=== PATIENT | male | born 1965 | race Caucasian/White ===

== ENCOUNTER 2017-02-15 09:52 | Emergency (ER) | payer BC ==
[2017-02-15] MEDS ORDERED: Sodium Chloride 0.9% 1,000 ML IV ONE (10:04)
--- NOTE | 2017-02-15 10:08 | EDM.PDOC ---
ED HPI GENERAL MEDICAL PROBLEM - General Chief Complaint: Abdominal Pain Stated Complaint: LOWER ABD PAIN Time Seen by Provider: 02/15/17 10:07 Source of Information: Reports: Patient - History of Present Illness INITIAL COMMENTS - FREE TEXT/NARRATIVE: HISTORY AND PHYSICAL: History of present illness: [Patient presents with acute onset 8 out of 10 right lower pain radiating to the testicles, he has a history of renal stones passing kidney stones in the past no fever nausea vomiting chills sweats Review of systems: As per history of present illness and below otherwise all systems reviewed and negative. Past medical history: As per history of present illness and as reviewed below otherwise noncontributory. Surgical history: As per history of present illness and as reviewed below otherwise noncontributory. Social history: No reported history of drug or alcohol abuse. Family history: As per history of present illness and as reviewed below otherwise noncontributory. Physical exam: HEENT: Atraumatic, normocephalic, pupils reactive, negative for conjunctival pallor or scleral icterus, mucous membranes moist, throat clear, neck supple, nontender, trachea midline. Lungs: Clear to auscultation, breath sounds equal bilaterally, chest nontender. Heart: S1S2, regular, negative for clicks, rubs, or JVD. Abdomen: Soft, nondistended, nontender. Negative for masses or hepatosplenomegaly. Negative for costovertebral tenderness. Pelvis: Stable nontender. Genitourinary: Deferred. Rectal: Deferred. Extremities: Atraumatic, negative for cords or calf pain. Neurovascular unremarkable. Neuro: Awake, alert, oriented. Cranial nerves II through XII unremarkable. Cerebellum unremarkable. Motor and sensory unremarkable throughout. Exam nonfocal. Diagnostics: [Lab as below EKG CT abdomen pelvis with and without contrast ] Therapeutics: [Morphine 2 mg IV 3 Toradol 30 mg IV 1 L normal saline bolus Zofran 8 mg IV Flomax 0.4 mg by mouth Solu-Medrol 125 mg IV None Bactrim Zofran Filter urine ] Impression: 3 mm stone right UVJ Definitive disposition and diagnosis as appropriate pending reevaluation and review of above. Right Lower Abdominal Pain Score (Numeric/FACES): 7 - Related Data Allergies Allergy/AdvReac Type Severity Reaction Status Date / Time avocado Allergy Airway Verified 02/15/17 10:09 Tightness Home Meds: Home Meds . [No Known Home Meds] 02/15/17 [History] ED ROS GENERAL - Review of Systems Review Of Systems: ROS reveals no pertinent complaints other than HPI. ED EXAM, GENERAL - Physical Exam Exam: See Below Course - Vital Signs Last Recorded V/S: Last Vital Signs Temp 36.1 C 02/15/17 12:03 Pulse 77 02/15/17 12:03 Resp 18 02/15/17 12:03 BP 149/89 H 02/15/17 12:03 Pulse Ox 97 02/15/17 12:03 - Orders/Labs/Meds Orders: Active Orders 24 hr Category Date Time Status EKG Documentation Completion [RC] STAT Care 02/15/17 10:08 Active CULTURE URINE [RM] Stat Lab 02/15/17 10:25 Received Labs: Laboratory Tests 02/15/17 02/15/17 02/15/17 Range/Units 10:10 10:10 10:25 WBC 8.03 (4.0-11.0) K/uL RBC 5.03 (4.50-5.90) M/uL Hgb 15.4 (13.0-17.0) g/dL Hct 43.6 (38.0-50.0) % MCV 86.7 (80.0-98.0) fL MCH 30.6 (27.0-32.0) pg MCHC 35.3 (31.0-37.0) g/dL RDW Std Deviation 39.3 (28.0-62.0) fl RDW Coeff of Clarita 12 (11.0-15.0) % Plt Count 292 (150-400) K/uL MPV 10.40 (7.40-12.00) fL Neut % (Auto) 59.6 (48.0-80.0) % Lymph % (Auto) 25.8 (16.0-40.0) % [place] % (Auto) 7.7 (0.0-15.0) % Eos % (Auto) 5.9 (0.0-7.0) % Baso % (Auto) 1.0 (0.0-1.5) % Neut # (Auto) 4.8 (1.4-5.7) K/uL Lymph # (Auto) 2.1 (0.6-2.4) K/uL [place] # (Auto) 0.6 (0.0-0.8) K/uL Eos # (Auto) 0.5 (0.0-0.7) K/uL Baso # (Auto) 0.1 (0.0-0.1) K/uL Nucleated RBC % 0.0 /100WBC Nucleated RBCs # 0 K/uL Sodium 141 (136-146) mmol/L Potassium 4.1 (3.5-5.1) mmol/L Chloride 107 (98-110) mmol/L Carbon Dioxide 24 (21-31) mmol/L BUN 9 (6.0-23.0) mg/dL Creatinine 1.0 (0.6-1.5) mg/dL Est Cr Clr Drug Dosing 98.77 mL/min Estimated GFR (MDRD) > 60.0 ml/min Glucose 126 H (60-110) mg/dL Calcium 9.4 (8.8-10.8) mg/dL Total Bilirubin 0.5 (0.1-1.5) mg/dL AST 27 (5-40) IU/L ALT 33 (8-54) IU/L Alkaline Phosphatase 47 (40-150) Troponin I < 0.10 (0.0-0.29) NG/ML Total Protein 7.1 (6.0-8.0) g/dL Albumin 4.3 (3.5-5.0) g/dL Globulin 2.8 (2.0-3.5) g/dL Albumin/Globulin Ratio 1.5 (1.3-2.8) Amylase 35 (10-90) U/L Lipase 13 (7-80) U/L Urine Color YELLOW Urine Appearance SLT CLOUDY Urine pH 5.5 (5.0-8.0) Ur Specific [place] >= 1.030 (1.001-1.035) Urine Protein NEGATIVE (NEGATIVE) mg/dL Urine Glucose (UA) NEGATIVE (NEGATIVE) mg/dL Urine Ketones NEGATIVE (NEGATIVE) mg/dL Urine Occult Blood MODERATE (NEGATIVE) Urine Nitrite NEGATIVE (NEGATIVE) Urine Bilirubin NEGATIVE (NEGATIVE) Urine Urobilinogen 0.2 (<2.0) EU/dL Ur Leukocyte Esterase NEGATIVE (NEGATIVE) Urine RBC 1-2 (0-2/HPF) Urine WBC 2-4 (0-5/HPF) Ur Epithelial Cells RARE (NONE-FEW) Amorphous Sediment HEAVY (NEGATIVE) Urine Bacteria 2+ H (NEGATIVE) Urine Mucus MODERATE (NONE-MOD) Meds: Medications Discontinued Medications Generic Name Dose Route Start Last Admin Trade Name [place] PRN Reason Stop Dose Admin Sodium Chloride 1,000 mls @ 999 mls/hr 02/15/17 10:04 02/15/17 10:21 Normal Saline IV 02/15/17 11:04 999 mls/hr STAT ONE Administration Iopamidol 100 ml 02/15/17 11:26 02/15/17 11:26 Isovue Multipack-370 (76%) IVPUSH 02/15/17 11:27 100 ml ONETIME STA Administration Ketorolac Tromethamine 30 mg 02/15/17 10:44 02/15/17 10:49 Toradol IVPUSH 02/15/17 10:45 30 mg ONETIME ONE Administration Methylprednisolone Sodium Succinate 125 mg 02/15/17 12:16 02/15/17 12:25 Solu-Medrol IVPUSH 02/15/17 12:17 125 mg ONETIME ONE Administration Morphine Sulfate 2 mg 02/15/17 10:11 02/15/17 10:20 Morphine IV 02/15/17 10:12 2 mg ONETIME ONE Administration Morphine Sulfate 2 mg 02/15/17 10:44 02/15/17 11:06 Morphine IV 02/15/17 10:45 2 mg ONETIME ONE Administration Ondansetron HCl 8 mg 02/15/17 10:11 02/15/17 10:20 Zofran IVPUSH 02/15/17 10:12 8 mg ONETIME ONE Administration Tamsulosin HCl 0.4 mg 02/15/17 12:16 02/15/17 12:25 Flomax PO 02/15/17 12:17 0.4 mg ONETIME ONE Administration Departure - Departure Time of Disposition: 13:01 Disposition: Home, Self-Care 01 Condition: Good Clinical Impression: Ureteral stone with hydronephrosis - Discharge Information Referrals: PCP,None [Primary Care Provider] - Forms: ED Department Discharge Additional Instructions: Medication as prescribed Return if symptoms persist or worsen or if he has intolerable pain or vomiting return to ER Otherwise, continue to filter urine return stone to primary care or urology for pathology testing Follow-up with primary care 2 weeks Follow-up with urology, call numbers below for primary scheduling and appropriate follow-up [facility] - Primary Care [address] [place] [id number] [facility] - Urology [address] [place] [id number] The following information is given to patients seen in the emergency department who are being discharged to home. This information is to outline your options for follow-up care. We provide all patients seen in our emergency department with a follow-up referral. The need for follow-up, as well as the timing and circumstances, are variable depending upon the specifics of your emergency department visit. If you don't have a primary care physician on staff, we will provide you with a referral. We always advise you to contact your personal physician following an emergency department visit to inform them of the circumstance of the visit and for follow-up with them and/or the need for any referrals to a consulting specialist. The emergency department will also refer you to a specialist when appropriate. This referral assures that you have the opportunity for follow-up care with a specialist. All of these measure are taken in an effort to provide you with optimal care, which includes your follow-up. Under all circumstances we always encourage you to contact your private physician who remains a resource for coordinating your care. When calling for follow-up care, please make the office aware that this follow-up is from your recent emergency room visit. If for any reason you are refused follow-up, please contact the [facility] emergency department at and asked to speak to the emergency department charge nurse. - My Orders Last 24 Hours: My Active Orders 02/15/17 10:08 EKG Documentation Completion [RC] STAT 02/15/17 10:25 CULTURE URINE [RM] Stat - Assessment/Plan Last 24 Hours: My Active Orders 02/15/17 10:08 EKG Documentation Completion [RC] STAT 02/15/17 10:25 CULTURE URINE [RM] Stat
[2017-02-15] MEDS ORDERED: Morphine 10 MG/ML Syringe IV ONE ×2 (10:11→10:44)
[2017-02-15] MEDS ORDERED: Ondansetron 4 MG/2 ML SDV IVPUSH ONE (10:11)
[2017-02-15 10:40] LABS: CHLORIDE,CL 107 mmol/L (98-110); SODIUM,NA 141 mmol/L (136-146)
[2017-02-15] MEDS ORDERED: Ketorolac 30 MG/ML SDV IVPUSH ONE (10:44)
[2017-02-15] MEDS ORDERED: Iopamidol 755 MG/ML 500 ML Multipack Bottle IVPUSH STA (11:26)
--- NOTE | 2017-02-15 12:09 | CT ---
CT of the abdomen and pelvis with and without contrast. HISTORY: Pain TECHNIQUE: Axial CT images were obtained of the abdomen and pelvis without and following the administ ration of 100 mL of Isovue in the right antecubital fossa. Coronal and sagittal reconstructions obtai lina. FINDINGS: The lung bases are clear, no pleural effusion. There is a tiny triangular-shaped 3 mm pleural-based n odule, likely focal atelectasis. There is moderate fatty infiltration of the liver. The spleen, and pancreas appear unremarkable for noncontrast examination. There is a small 1.3 cm left adrenal myelolipoma. The gallbladder appears no rmal. There is no bulky retroperitoneal lymphadenopathy. No abdominal ascites. There is a 3 mm stone at the right ureterovesicular junction with mild proximal hydronephrosis and de layed nephrogram. There is mild right renal stranding also noted. No obstructive uropathy noted withi n the left kidney. The large and small bowel are normal in caliber without evidence of obstruction. The appendix appears normal. There is no bulky pelvic lymphadenopathy. No free fluid. No free air. The urinary bladder ap pears normal. Mild degenerative changes noted within the hips. IMPRESSION: 1. There is a 3 mm obstructing stone at the right ureterovesicular junction with mild proximal hydron ephrosis.
[2017-02-15] MEDS ORDERED: Tamsulosin 0.4 MG Cap.ER PO ONE (12:16)
[2017-02-15] MEDS ORDERED: methylPREDNISolone Sodium Succinate 125 MG/2 ML SDV IVPUSH ONE (12:16)
== END 2017-02-15 13:09 | disposition home or self-care (01) ==
LOC: MW.ED 09:52
DX: N13.2 Hydronephrosis with renal and ureteral calculous obstruction (principal); Z91.018 Allergy to other foods
CPT/HCPCS: 36415; 74178; 80053; 81001; 82150; 83690; 84484; 85025; 87086; 96361; 96374; 96375; 96376; 99284; A9270; J1885; J2270; J2405; J2930; J7040; Q9967; 99283

== ENCOUNTER 2017-02-24 13:06 | Inpatient (IN) | payer BC ==
[2017-02-24] MEDS ORDERED: Tamsulosin 0.4 MG Cap.ER PO ONE (13:45)
--- NOTE | 2017-02-24 13:45 | EDM.PDOC ---
ED HPI GENERAL MEDICAL PROBLEM - General Chief Complaint: Genitourinary Problem Stated Complaint: POSSIBLE KIDNEY STONE Time Seen by Provider: 02/24/17 13:15 Source of Information: Reports: Patient History Limitations: Reports: No Limitations - History of Present Illness INITIAL COMMENTS - FREE TEXT/NARRATIVE: History of present illness: [81-year-old male comes in complaining of kidney stone pain. Patient was seen on the with diagnosed kidney stones and subsequent treatment patient has captured a stone that he is brought in as well as feeling like he has developed more and that they are moving and he is complaining of significant amounts of pain.] Review of systems: As per history of present illness and below otherwise all systems reviewed and negative. Past medical history: As per history of present illness and as reviewed below otherwise noncontributory. Surgical history: As per history of present illness and as reviewed below otherwise noncontributory. Social history: No reported history of drug or alcohol abuse. Family history: As per history of present illness and as reviewed below otherwise noncontributory. Physical exam: HEENT: Atraumatic, normocephalic, pupils reactive, negative for conjunctival pallor or scleral icterus, mucous membranes moist, throat clear, neck supple, nontender, trachea midline. Lungs: Clear to auscultation, breath sounds equal bilaterally, chest nontender. Heart: S1S2, regular, negative for clicks, rubs, or JVD. Abdomen: Soft, nondistended, nontender. Negative for masses or hepatosplenomegaly. Negative for costovertebral tenderness. Pelvis: Stable nontender. Genitourinary: Deferred. Rectal: Deferred. Extremities: Atraumatic, negative for cords or calf pain. Neurovascular unremarkable. Neuro: Awake, alert, oriented. Cranial nerves II through XII unremarkable. Cerebellum unremarkable. Motor and sensory unremarkable throughout. Exam nonfocal. Patient with generalized pain indicates he feels significantly better but secondary to leukocytosis discussed with hospitalist and will admit Diagnostics: [CT of abdomen and pelvis without contrast, UA] Therapeutics: [3 L normal saline -IV fluid, Flomax, Toradol] Impression: [#1 Instructing kidney stone #2 leukocytosis ] Plan: [Mid inpatient] Definitive disposition and diagnosis as appropriate pending reevaluation and review of above. Right Lower Abdomen Pain Score (Numeric/FACES): 6 - Related Data Allergies Allergy/AdvReac Type Severity Reaction Status Date / Time avocado Allergy Airway Verified 02/24/17 13:24 Tightness Home Meds: Home Meds HYDROcodone Bitartrate [Zohydro ER] 30 mg PO BID 02/24/17 [History] Ondansetron HCl [Zofran] 8 mg PO DAILY 02/24/17 [History] Sulfamethoxazole/Trimethoprim [Septra] 800 mg PO DAILY 02/24/17 [History] Past Medical History - Past Health History Medical/Surgical History: Denies Medical/Surgical History HEENT History: Reports: None Cardiovascular History: Reports: None Respiratory History: Reports: None Gastrointestinal History: Reports: None Genitourinary History: Reports: Renal Calculus Musculoskeletal History: Reports: None Neurological History: Reports: None Psychiatric History: Reports: None Endocrine/Metabolic History: Reports: None Hematologic History: Reports: None Immunologic History: Reports: None Dermatologic History: Reports: None - Infectious Disease History Infectious Disease History: Reports: Chicken Pox - Past Surgical History Head Surgeries/Procedures: Reports: None HEENT Surgical History: Reports: None Cardiovascular Surgical History: Reports: None Respiratory Surgical History: Reports: None GI Surgical History: Reports: None Male Surgical History: Reports: None Endocrine Surgical History: Reports: None Musculoskeletal Surgical History: Reports: None Dermatological Surgical History: Reports: None Social & Family History - Family History Family Medical History: Noncontributory - Tobacco Use Smoking Status *Q: Never Smoker - Caffeine Use Caffeine Use: Reports: Coffee - Recreational Drug Use Recreational Drug Use: No ED ROS GENERAL - Review of Systems Review Of Systems: See Below (History of present illness) ED EXAM, GENERAL - Physical Exam Exam: See Below (See history of present illness) Course - Vital Signs Last Recorded V/S: Last Vital Signs Temp 36.3 C 02/24/17 13:28 Pulse 96 02/24/17 15:40 Resp 15 02/24/17 15:40 BP 121/69 02/24/17 15:40 Pulse Ox 94 L 02/24/17 15:40 - Orders/Labs/Meds Orders: Active Orders 24 hr Category Date Time Status Abdomen Pelvis wo Cont [CT] Stat Exams 02/24/17 14:05 Taken CULTURE BLOOD [BC] Stat Lab 02/24/17 15:06 Received CULTURE BLOOD [BC] Stat Lab 02/24/17 15:11 Received CULTURE URINE [RM] Stat Lab 02/24/17 15:57 Uncollected Piperacillin/Tazobactam [Piperacil-Tazobact] 3.375 gm Med 02/24/17 16:00 Active Sodium Chloride 0.9% [Normal Saline] 50 ml IV Q6H Blood Culture x2 Reflex Set [OM.PC] Stat Oth 02/24/17 14:57 Ordered Medication Orders Piperacillin Sod/Tazobactam (Sod 3.375 gm/ Sodium Chloride) 50 mls @ 100 mls/ hr IV Q6H [facility] Labs: Laboratory Tests 02/24/17 02/24/17 02/24/17 Range/Units 13:32 14:00 14:00 WBC 19.34 H (4.0-11.0) K/uL RBC 5.36 (4.50-5.90) M/uL Hgb 16.0 (13.0-17.0) g/dL Hct 46.1 (38.0-50.0) % MCV 86.0 (80.0-98.0) fL MCH 29.9 (27.0-32.0) pg MCHC 34.7 (31.0-37.0) g/dL RDW Std Deviation 38.9 (28.0-62.0) fl RDW Coeff of Clarita 13 (11.0-15.0) % Plt Count 273 (150-400) K/uL MPV 10.70 (7.40-12.00) fL Neut % (Auto) 91.0 H (48.0-80.0) % Lymph % (Auto) 3.3 L (16.0-40.0) % [place] % (Auto) 5.4 (0.0-15.0) % Eos % (Auto) 0.1 (0.0-7.0) % Baso % (Auto) 0.2 (0.0-1.5) % Neut # (Auto) 17.6 H (1.4-5.7) K/uL Lymph # (Auto) 0.6 (0.6-2.4) K/uL [place] # (Auto) 1.1 H (0.0-0.8) K/uL Eos # (Auto) 0.0 (0.0-0.7) K/uL Baso # (Auto) 0.0 (0.0-0.1) K/uL Nucleated RBC % 0.0 /100WBC Nucleated RBCs # 0 K/uL Lactate (0.20-2.00) mmol/L Sodium 140 (136-146) mmol/L Potassium 4.6 (3.5-5.1) mmol/L Chloride 105 (98-110) mmol/L Carbon Dioxide 23 (21-31) mmol/L BUN 17 (6.0-23.0) mg/dL Creatinine 1.4 (0.6-1.5) mg/dL Est Cr Clr Drug Dosing 70.55 mL/min Estimated GFR (MDRD) 53.4 ml/min Glucose 126 H (60-110) mg/dL Calcium 10.0 (8.8-10.8) mg/dL Total Bilirubin 1.1 (0.1-1.5) mg/dL AST 24 (5-40) IU/L ALT 30 (8-54) IU/L Alkaline Phosphatase 52 (40-150) Total Protein 7.6 (6.0-8.0) g/dL Albumin 4.7 (3.5-5.0) g/dL Globulin 2.9 (2.0-3.5) g/dL Albumin/Globulin Ratio 1.6 (1.3-2.8) Urine Color YELLOW Urine Appearance CLEAR Urine pH 6.0 (5.0-8.0) Ur Specific [place] >= 1.030 (1.001-1.035) Urine Protein TRACE (NEGATIVE) mg/dL Urine Glucose (UA) NEGATIVE (NEGATIVE) mg/dL Urine Ketones NEGATIVE (NEGATIVE) mg/dL Urine Occult Blood SMALL H (NEGATIVE) Urine Nitrite NEGATIVE (NEGATIVE) Urine Bilirubin NEGATIVE (NEGATIVE) Urine Urobilinogen 0.2 (<2.0) EU/dL Ur Leukocyte Esterase NEGATIVE (NEGATIVE) Urine RBC 1-5 (0-2/HPF) Urine WBC 0-1 (0-5/HPF) Ur Epithelial Cells RARE (NONE-FEW) Urine Bacteria FEW (NEGATIVE) 02/24/17 Range/Units 15:11 WBC (4.0-11.0) K/uL RBC (4.50-5.90) M/uL Hgb (13.0-17.0) g/dL Hct (38.0-50.0) % MCV (80.0-98.0) fL MCH (27.0-32.0) pg MCHC (31.0-37.0) g/dL RDW Std Deviation (28.0-62.0) fl RDW Coeff of [place] (11.0-15.0) % Plt Count (150-400) K/uL MPV (7.40-12.00) fL Neut % (Auto) (48.0-80.0) % Lymph % (Auto) (16.0-40.0) % [place] % (Auto) (0.0-15.0) % Eos % (Auto) (0.0-7.0) % Baso % (Auto) (0.0-1.5) % Neut # (Auto) (1.4-5.7) K/uL Lymph # (Auto) (0.6-2.4) K/uL [place] # (Auto) (0.0-0.8) K/uL Eos # (Auto) (0.0-0.7) K/uL Baso # (Auto) (0.0-0.1) K/uL Nucleated RBC % /100WBC Nucleated RBCs # K/uL Lactate 2.5 H (0.20-2.00) mmol/L Sodium (136-146) mmol/L Potassium (3.5-5.1) mmol/L Chloride (98-110) mmol/L Carbon Dioxide (21-31) mmol/L BUN (6.0-23.0) mg/dL Creatinine (0.6-1.5) mg/dL Est Cr Clr Drug Dosing mL/min Estimated GFR (MDRD) ml/min Glucose (60-110) mg/dL Calcium (8.8-10.8) mg/dL Total Bilirubin (0.1-1.5) mg/dL AST (5-40) IU/L ALT (8-54) IU/L Alkaline Phosphatase (40-150) Total Protein (6.0-8.0) g/dL Albumin (3.5-5.0) g/dL Globulin (2.0-3.5) g/dL Albumin/Globulin Ratio (1.3-2.8) Urine Color Urine Appearance Urine pH (5.0-8.0) Ur Specific [place] (1.001-1.035) Urine Protein (NEGATIVE) mg/dL Urine Glucose (UA) (NEGATIVE) mg/dL Urine Ketones (NEGATIVE) mg/dL Urine Occult Blood (NEGATIVE) Urine Nitrite (NEGATIVE) Urine Bilirubin (NEGATIVE) Urine Urobilinogen (<2.0) EU/dL Ur Leukocyte Esterase (NEGATIVE) Urine RBC (0-2/HPF) Urine WBC (0-5/HPF) Ur Epithelial Cells (NONE-FEW) Urine Bacteria (NEGATIVE) Meds: Medications Generic Name Dose Route Start Last Admin Trade Name Freq PRN Reason Stop Dose Admin Piperacillin Sod/Tazobactam 50 mls @ 100 mls/hr 02/24/17 16:00 Sod 3.375 gm/ Sodium Chloride IV Q6H BAR Discontinued Medications Generic Name Dose Route Start Last Admin Trade Name Freq PRN Reason Stop Dose Admin Hydromorphone HCl 1 mg 02/24/17 14:05 02/24/17 14:13 Dilaudid IVPUSH 02/24/17 14:06 1 mg ONETIME ONE Administration Sodium Chloride 1,000 mls @ 999 mls/hr 02/24/17 13:45 02/24/17 15:48 Normal Saline IV 02/24/17 14:45 999 mls/hr STAT ONE Administration Ketorolac Tromethamine 30 mg 02/24/17 13:48 02/24/17 14:03 Toradol IVPUSH 02/24/17 13:49 30 mg ONETIME ONE Administration Ondansetron HCl 4 mg 02/24/17 14:05 02/24/17 14:13 Zofran IVPUSH 02/24/17 14:06 4 mg ONETIME ONE Administration Tamsulosin HCl 0.4 mg 02/24/17 13:45 02/24/17 14:03 Flomax PO 02/24/17 13:46 0.4 mg ONETIME ONE Administration Departure - Departure Time of Disposition: 16:02 Disposition: Admitted As Inpatient 66 Condition: Good Clinical Impression: Ureteral stone with hydronephrosis - Discharge Information Referrals: PCP,None [Primary Care Provider] - Forms: ED Department Discharge - My Orders Last 24 Hours: My Active Orders 02/24/17 14:05 Abdomen Pelvis wo Cont [CT] Stat 02/24/17 14:57 Blood Culture x2 Reflex Set [OM.PC] Stat 02/24/17 15:06 CULTURE BLOOD [BC] Stat 02/24/17 15:11 CULTURE BLOOD [BC] Stat - Assessment/Plan Last 24 Hours: My Active Orders 02/24/17 14:05 Abdomen Pelvis wo Cont [CT] Stat 02/24/17 14:57 Blood Culture x2 Reflex Set [OM.PC] Stat 02/24/17 15:06 CULTURE BLOOD [BC] Stat 02/24/17 15:11 CULTURE BLOOD [BC] Stat
[2017-02-24] MEDS ORDERED: Ketorolac 30 MG/ML SDV IVPUSH ONE (13:48)
[2017-02-24] MEDS: Sodium Chloride 0.9% 1,000 ML IV ONE ×3 (14:03→16:53)
[2017-02-24] MEDS ORDERED: HYDROmorphone 2 MG/ML Syringe IVPUSH ONE (14:05)
[2017-02-24] MEDS ORDERED: Ondansetron 4 MG/2 ML SDV IVPUSH ONE (14:05)
[2017-02-24] MEDS: Piperacillin/Tazobactam 3.375 GM in Sodium Chloride 0.9% 50 ML IV SCH ×2 (16:05→21:06)
[2017-02-24] MEDS ORDERED: HYDROmorphone 2 MG/ML Syringe IVPUSH PRN (16:23)
[2017-02-24] MEDS ORDERED: Ondansetron 4 MG/2 ML SDV IVPUSH PRN (16:23)
[2017-02-24] MEDS ORDERED: Acetaminophen 325 MG Tab PO PRN (16:24)
[2017-02-24] MEDS: Sodium Chloride 0.9% 1,000 ML IV SCH (17:44)
--- NOTE | 2017-02-24 18:15 | PCM.HP ---
H&P History of Present Illness - General Date of Service: 02/24/17 Source of Information: Patient, Provider - History of Present Illness Initial Comments - Free Text/Narative: He presented to the ED today after noting severe right flank pain radiating to the scrotum. He feels better now. He was diagnosed with a 3 mm right ureteral stone with hydronephrosis on imaging and was noted to have an elevated lactic acid. there was concern that he may have had uti with sepsis. Right Lower Abdomen Pain Score (Numeric/FACES): 1 - Related Data Allergies/Adverse Reactions: Allergies Allergy/AdvReac Type Severity Reaction Status Date / Time avocado Allergy Airway Verified 02/24/17 13:24 Tightness Home Medications: Home Meds HYDROcodone Bitartrate [Zohydro ER] 30 mg PO BID 02/24/17 [History] Ondansetron HCl [Zofran] 8 mg PO DAILY 02/24/17 [History] Sulfamethoxazole/Trimethoprim [Septra] 800 mg PO DAILY 02/24/17 [History] Past Medical History - Past Health History Medical/Surgical History: Denies Medical/Surgical History HEENT History: Reports: None Cardiovascular History: Reports: None. Denies: Heart Murmur, Hypertension Respiratory History: Reports: None. Denies: COPD Gastrointestinal History: Reports: None. Denies: Cirrhosis Genitourinary History: Reports: Renal Calculus Musculoskeletal History: Reports: None Neurological History: Reports: None Psychiatric History: Reports: None Endocrine/Metabolic History: Reports: None Hematologic History: Reports: None Immunologic History: Reports: None Dermatologic History: Reports: None - Infectious Disease History Infectious Disease History: Reports: Chicken Pox - Past Surgical History Head Surgeries/Procedures: Reports: None HEENT Surgical History: Reports: None Cardiovascular Surgical History: Reports: None Respiratory Surgical History: Reports: None GI Surgical History: Reports: None Male Surgical History: Reports: None Endocrine Surgical History: Reports: None Musculoskeletal Surgical History: Reports: None Dermatological Surgical History: Reports: None Social & Family History - Family History Family Medical History: Noncontributory - Tobacco Use Smoking Status *Q: Never Smoker - Caffeine Use Caffeine Use: Reports: Coffee - Recreational Drug Use Recreational Drug Use: No H&P Review of Systems - Review of Systems: Review Of Systems: See Below General: Denies: Fever, Chills HEENT: Denies: Sore Throat Pulmonary: Denies: Shortness of Breath, Cough, Sputum, Hemoptysis Cardiovascular: Denies: Chest Pain Gastrointestinal: Denies: Black Stool Genitourinary: Denies: Hematuria, Retention Exam - Exam Exam: See Below - Vital Signs Vital Signs: Last Vital Signs Temp 97.4 F 02/24/17 13:28 Pulse 64 02/24/17 16:50 Resp 15 02/24/17 16:50 BP 109/58 L 02/24/17 16:50 Pulse Ox 98 02/24/17 16:50 Weight: 104.4 kg - Exam General: Alert, Oriented HEENT: EOMI Neck: Supple, Trachea Midline Lungs: Clear to Auscultation, Normal Respiratory Effort Cardiovascular: Regular Rate, Regular Rhythm GI/Abdominal Exam: Soft, Non-Tender (Male) Exam: Other (no CVAT) Back Exam: No: CVA Tenderness (L), CVA Tenderness (R) Neurological: Cranial Nerves Intact Neuro Extensive - Mental Status: Alert, Oriented x3 Neuro Extensive - Motor, Sensory, Reflexes: CN II-XII Intact - Patient Data Result Diagrams: 02/24/17 14:00 02/24/17 14:00 *Q Meaningful Use (ADM) - VTE *Q VTE Criteria *Q: - Stroke *Q Stroke Criteria *Q: - AMI *Q AMI Criteria *Q: - Problem List (1) Leukocytosis SNOMED Code(s): 349466990 ICD Code: D72.829 - ELEVATED WHITE BLOOD CELL COUNT, UNSPECIFIED Status: Acute Current Visit: Yes (2) Ureteral stone with hydronephrosis SNOMED Code(s): 215614687 ICD Code: N13.2 - HYDRONEPHROSIS WITH RENAL AND URETERAL CALCULOUS OBSTRUCTION Status: Acute Current Visit: Yes Problem List Initiated/Reviewed/Updated: Yes Orders Last 24hrs: Active Orders 24 hr Category Date Time Status Communication Order [RC] PER UNIT ROUTINE Care 02/24/17 16:24 Active Oxygen Therapy [RC] PRN Care 02/24/17 16:23 Active Oxygen Therapy [RC] PRN Care 02/24/17 16:24 Active VTE/DVT Education [RC] PER UNIT ROUTINE Care 02/24/17 16:23 Active VTE/DVT Education [RC] PER UNIT ROUTINE Care 02/24/17 16:24 Active Vital Signs [RC] Q4H Care 02/24/17 16:23 Active Vital Signs [RC] Q4H Care 02/24/17 16:24 Active Regular Diet [DIET] Diet 02/24/17 Dinner Active BASIC METABOLIC PANEL,BMP [CHEM] AM Lab 02/25/17 05:11 Ordered BASIC METABOLIC PANEL,BMP [CHEM] AM Lab 02/26/17 05:11 Ordered BASIC METABOLIC PANEL,BMP [CHEM] AM Lab 02/27/17 05:11 Ordered CBC WITH AUTO DIFF [HEME] AM Lab 02/25/17 05:11 Ordered CBC WITH AUTO DIFF [HEME] AM Lab 02/26/17 05:11 Ordered CBC WITH AUTO DIFF [HEME] AM Lab 02/27/17 05:11 Ordered LACTIC ACID,WHOLE BLOOD [BG] Routine Lab 02/24/17 21:00 Ordered MAGNESIUM [CHEM] AM Lab 02/25/17 05:11 Ordered Acetaminophen [Tylenol] Med 02/24/17 16:24 Active 650 mg PO Q4H PRN HYDROmorphone [Dilaudid] Med 02/24/17 16:23 Active 1 mg IVPUSH Q2H PRN Ondansetron [Zofran] Med 02/24/17 16:23 Active 4 mg IVPUSH Q4H PRN Sodium Chloride 0.9% [Normal Saline] 1,000 ml Med 02/24/17 16:30 Active IV ASDIRECTED Tamsulosin [Flomax] Med 02/24/17 21:00 Active 0.4 mg PO BIDPC Resuscitation Status Routine Resus Stat 02/24/17 16:23 Ordered Medication Orders Acetaminophen (Tylenol) 650 mg PO Q4H PRN PRN Reason: Pain (Mild 1-3)/fever Hydromorphone HCl (Dilaudid) 1 mg IVPUSH Q2H PRN PRN Reason: Pain (severe 7-10) Piperacillin Sod/Tazobactam (Sod 3.375 gm/ Sodium Chloride) 50 mls @ 100 mls/ hr IV Q6H BAR Last Admin: 02/24/17 16:05 Dose: 100 mls/hr Sodium Chloride (Normal Saline) 1,000 mls @ 125 mls/hr IV ASDIRECTED BAR Last Admin: 02/24/17 17:44 Dose: 125 mls/hr Ondansetron HCl (Zofran) 4 mg IVPUSH Q4H PRN PRN Reason: Nausea Tamsulosin HCl (Flomax) 0.4 mg PO BIDPC BAR Assessment/Plan Comment:: see orders antibiotics Edmar munoz MD
[2017-02-24] MEDS: Tamsulosin 0.4 MG Cap.ER PO SCH (21:06)
[2017-02-25] MEDS: Sodium Chloride 0.9% 1,000 ML IV SCH (03:33)
[2017-02-25] MEDS: Piperacillin/Tazobactam 3.375 GM in Sodium Chloride 0.9% 50 ML IV SCH ×2 (03:34→09:46)
[2017-02-25 05:11] LABS: CHLORIDE,CL 108 mmol/L (98-110); SODIUM,NA 137 mmol/L (136-146)
[2017-02-25] MEDS: Tamsulosin 0.4 MG Cap.ER PO SCH (08:18)
--- NOTE | 2017-02-25 12:09 | PCM.DCSUM1 ---
Discharge Summary - Hospital Course Brief History: he was admitted with a leukocytosis and elevated serum lactate. He was noted to have a three mm right distal ureteral stone on CT scan done in the ED. - Discharge Data Discharge Date: 02/25/17 Discharge Disposition: Home, Self-Care 01 Condition: Stable - Discharge Diagnosis/Problem(s) (1) Leukocytosis SNOMED Code(s): 130579274 ICD Code: D72.829 - ELEVATED WHITE BLOOD CELL COUNT, UNSPECIFIED Status: Acute Current Visit: Yes (2) Ureteral stone with hydronephrosis SNOMED Code(s): 270358866 ICD Code: N13.2 - HYDRONEPHROSIS WITH RENAL AND URETERAL CALCULOUS OBSTRUCTION Status: Acute Current Visit: Yes - Patient Summary/Data Hospital Course: he was started on zosyn and IVF. His pain completely resolved shortly after coming to the medical floor. He remained pain free . His white blood cell count and his serum lactate normalized. His abdomen CT also showed fatty liver. I discussed this with him. He states that he rarely drinks alcohol. I advised regarding the importance of avoiding heavy alcohol use. IMpression: UTI ureterolithiasis plenty of fluids complete previously prescribed course of septra follow up on a routine basis he is to be given a copy of his discharge summary and CT report as he is no sure what physician he will see in follow up. Edmar Joy MD - Discharge Plan Home Medications: Home Meds HYDROcodone Bitartrate [Zohydro ER] 30 mg PO BID 02/24/17 [History] Ondansetron HCl [Zofran] 8 mg PO DAILY 02/24/17 [History] Sulfamethoxazole/Trimethoprim [Septra] 800 mg PO DAILY 02/24/17 [History] Forms: ED Department Discharge Referrals: PCP,None [Primary Care Provider] - - Patient Data Vitals - Most Recent: Last Vital Signs Temp 97.7 F 02/25/17 08:00 Pulse 88 02/25/17 08:00 Resp 16 02/25/17 08:00 BP 123/72 02/25/17 08:00 Pulse Ox 98 02/25/17 08:00 Weight - Most Recent: 104.4 kg I&O - Last 24 hours: Intake & Output 02/24/17 02/25/17 02/25/17 22:59 06:59 14:59 Intake Total 50 3200 Output Total 1875 Balance 50 1325 Lab Results - Last 24 hrs: Laboratory Results - last 24 hr 02/25/17 02/25/17 02/25/17 Range/Units 04:30 04:30 04:30 WBC 10.21 (4.0-11.0) K/uL RBC 4.28 L (4.50-5.90) M/uL Hgb 12.9 L (13.0-17.0) g/dL Hct 37.3 L (38.0-50.0) % MCV 87.1 (80.0-98.0) fL MCH 30.1 (27.0-32.0) pg MCHC 34.6 (31.0-37.0) g/dL RDW Std Deviation 40.4 (28.0-62.0) fl RDW Coeff of [place] 13 (11.0-15.0) % Plt Count 214 (150-400) K/uL MPV 10.20 (7.40-12.00) fL Neut % (Auto) 69.8 (48.0-80.0) % Lymph % (Auto) 15.8 L (16.0-40.0) % [place] % (Auto) 8.8 (0.0-15.0) % Eos % (Auto) 5.1 (0.0-7.0) % Baso % (Auto) 0.5 (0.0-1.5) % Neut # (Auto) 7.1 H (1.4-5.7) K/uL Lymph # (Auto) 1.6 (0.6-2.4) K/uL [place] # (Auto) 0.9 H (0.0-0.8) K/uL Eos # (Auto) 0.5 (0.0-0.7) K/uL Baso # (Auto) 0.1 (0.0-0.1) K/uL Nucleated RBC % 0.0 /100WBC Nucleated RBCs # 0 K/uL Lactate 1.0 (0.20-2.00) mmol/L Sodium 137 (136-146) mmol/L Potassium 3.9 (3.5-5.1) mmol/L Chloride 108 (98-110) mmol/L Carbon Dioxide 22 (21-31) mmol/L BUN 17 (6.0-23.0) mg/dL Creatinine 1.2 (0.6-1.5) mg/dL Est Cr Clr Drug Dosing 82.30 mL/min Estimated GFR (MDRD) > 60.0 ml/min Glucose 112 H (60-110) mg/dL Calcium 8.2 L (8.8-10.8) mg/dL Magnesium 1.6 (1.5-2.3) mEq/L Med Orders - Current: Current Medications Acetaminophen (Tylenol) 650 mg PO Q4H PRN PRN Reason: Pain (Mild 1-3)/fever Hydromorphone HCl (Dilaudid) 1 mg IVPUSH Q2H PRN PRN Reason: Pain (severe 7-10) Piperacillin Sod/Tazobactam (Sod 3.375 gm/ Sodium Chloride) 50 mls @ 100 mls/ hr IV Q6H [facility] Last Admin: 02/25/17 09:46 Dose: 100 mls/hr Sodium Chloride (Normal Saline) 1,000 mls @ 125 mls/hr IV ASDIRECTED [facility] Last Admin: 02/25/17 03:33 Dose: 125 mls/hr Ondansetron HCl (Zofran) 4 mg IVPUSH Q4H PRN PRN Reason: Nausea [facility] Last Admin: 02/25/17 08:18 Dose: 0.4 mg Discontinued Medications Hydromorphone HCl (Dilaudid) 1 mg IVPUSH ONETIME ONE Stop: 02/24/17 14:06 Last Admin: 02/24/17 14:13 Dose: 1 mg Sodium Chloride (Normal Saline) 1,000 mls @ 999 mls/hr IV STAT ONE Stop: 02/24/17 14:45 Last Admin: 02/24/17 16:53 Dose: 999 mls/hr Ketorolac Tromethamine (Toradol) 30 mg IVPUSH ONETIME ONE Stop: 02/24/17 13:49 Last Admin: 02/24/17 14:03 Dose: 30 mg Ondansetron HCl (Zofran) 4 mg IVPUSH ONETIME ONE Stop: 02/24/17 14:06 Last Admin: 02/24/17 14:13 Dose: 4 mg Tamsulosin HCl (Flomax) 0.4 mg PO ONETIME ONE Stop: 02/24/17 13:46 Last Admin: 02/24/17 14:03 Dose: 0.4 mg *Q Meaningful Use (DIS) - VTE *Q VTE Criteria *Q: - Stroke *Q Stroke Criteria *Q: - AMI *Q AMI Criteria *Q:
--- NOTE | 2017-02-26 13:33 | CT ---
EXAM DATE: 02/24/17 PATIENT'S AGE: 51 Patient: JOSE MANUEL SPRINGER Facility: [facility], [place], [place] : 1965 Study: CT Abdomen/Pelvis [id number]/28/2017 2:57:05 PM Ordering Physician: BRYANT Final Report: INDICATION: Right-sided pain, recent history of a 3 millimeter obstructing right UVJ calculus. TECHNIQUE: CT abdomen and pelvis without contrast. COMPARISON: 02/15/2017 FINDINGS: Lower chest: Unremarkable. Liver: Hepatic steatosis. Spleen: Unremarkable. Pancreas: Unremarkable. Gallbladder and bile ducts: Unremarkable. Kidneys: Stable 3 millimeter obstructing right UVJ calculus with moderate hydronephrosis and perinephric stranding. Adrenal glands: Stable 1.3 centimeter benign fatty left adrenal lesion. GI tract: Unremarkable. Appendix is normal. Vascular structures: Unremarkable. Lymph nodes: Unremarkable. Miscellaneous: Unremarkable. No free air or significant free fluid. Pelvic Organs: Unremarkable. Bones: Left L4 pars defect. IMPRESSION: Stable 3 millimeter obstructing right UVJ calculus with moderate hydronephrosis and perinephric stranding. Hepatic steatosis. Stable 1.3 centimeter benign fatty left adrenal nodule. Left L4 pars defect with no evidence for spondylolisthesis. Dictated by Gulshan Velásquez MD @ 02/24/2017 3:44:18 PM Dictated by: Gulshan Velásquez MD @ 02/24/2017 15:44:27 (Electronic Signature) Report Signed by Proxy. [facility]
== END 2017-02-25 13:30 | disposition home or self-care (01) | DRG 465 ==
LOC: MW.ED 13:06 → MW.MS 16:03
PROVIDERS: ADMIT Family Medicine; ATTEND Family Medicine
DX: N13.2 Hydronephrosis with renal and ureteral calculous obstruction (principal); D72.829 Elevated white blood cell count, unspecified; K76.0 Fatty (change of) liver, not elsewhere classified; Z79.899 Other long term (current) drug therapy
CPT/HCPCS: 36415; 74176; 74176-26; 80048; 80053; 81001; 83605; 83735; 85025; 87040; 87086; 96361; 96365; 96375; 99283; 99285-25; A9270-GY; J1170; J1885; J2405; J2543; J7040; J7050

== ENCOUNTER 2020-03-12 07:06 | Day surgery (SDC) | payer BC ==
[~2020-03-12 07:06] MED LIST: Lactated Ringers 1,000 ML IV SCH
[2020-03-12] MEDS ORDERED: Propofol 200 MG/20 ML SDV ONE ×2 (07:07→08:44)
[2020-03-12] MEDS ORDERED: Lidocaine 2% 5 ML SDV ONE (07:07)
[2020-03-12] MEDS ORDERED: fentaNYL 100 MCG/2 ML SDV ONE (07:07)
--- NOTE | 2020-03-12 07:48 | PCM.PREANE ---
Preanesthetic Assessment - Anesthesia/Transfusion/Family Hx Anesthesia History: Prior Anesthesia Without Reaction Family History of Anesthesia Reaction: No Transfusion History: No Prior Transfusion(s) Intubation History: Unknown - Review of Systems General: No Symptoms Pulmonary: No Symptoms Cardiovascular: No Symptoms Gastrointestinal: No Symptoms, Other (screening colonoscopy) Neurological: No Symptoms Other: Reports: None - Physical Assessment Vital Signs: Last Vital Signs Temp 36.1 C 03/12/20 07:22 Pulse 94 03/12/20 07:22 Resp 14 03/12/20 07:22 BP 123/74 03/12/20 07:22 Pulse Ox 96 03/12/20 07:22 Height: 6 ft 2 in Weight: 101.151 kg ASA Class: 2 Mental Status: Alert & Oriented x3 Airway Class: Mallampati = 3 Dentition: Reports: Normal Dentition, [place](s) (x2 upper front) Thyro-Mental Finger Breadths: 3 Mouth Opening Finger Breadths: 3 ROM/Head Extension: Full Lungs: Clear to Auscultation, Normal Respiratory Effort Cardiovascular: Regular Rate, Regular Rhythm - Allergies Allergies/Adverse Reactions: Allergies Allergy/AdvReac Type Severity Reaction Status Date / Time avocado Allergy Airway Verified 03/12/20 07:26 Tightness - Blood Blood Available: No - Anesthesia Plan Pre-Op Medication Ordered: None - Acknowledgements Anesthesia Type Planned: MAC Pt an Appropriate Candidate for the Planned Anesthesia: Yes Alternatives and Risks of Anesthesia Discussed w Pt/Guardian: Yes Pt/Guardian Understands and Agrees with Anesthesia Plan: Yes PreAnesthesia Questionnaire - Past Health History Medical/Surgical History: Denies Medical/Surgical History HEENT History: Reports: None Cardiovascular History: Reports: Hypertension Respiratory History: Reports: Sleep Apnea Other Respiratory History: had sleep study done 4 to 5 years ago which came back inconclusive, has not had a repeat sleep study since Gastrointestinal History: Reports: GERD Genitourinary History: Reports: Renal Calculus Musculoskeletal History: Reports: None Neurological History: Reports: None Psychiatric History: Reports: None Endocrine/Metabolic History: Reports: None Hematologic History: Reports: None Immunologic History: Reports: None Oncologic (Cancer) History: Reports: None Dermatologic History: Reports: None - Infectious Disease History Infectious Disease History: Reports: Chicken Pox - Past Surgical History Head Surgeries/Procedures: Reports: None HEENT Surgical History: Reports: Oral Surgery, Tonsillectomy Cardiovascular Surgical History: Reports: None Respiratory Surgical History: Reports: None GI Surgical History: Reports: None Male Surgical History: Reports: None Endocrine Surgical History: Reports: None Neurological Surgical History: Reports: None Musculoskeletal Surgical History: Reports: None Oncologic Surgical History: Reports: None Dermatological Surgical History: Reports: None - SUBSTANCE USE Tobacco Use Status *Q: Never Tobacco User Recreational Drug Use History: No - HOME MEDS Home Medications: Home Meds Losartan Potassium 50 mg PO DAILY 03/08/20 [History] Metoprolol Succinate 25 mg PO DAILY 03/08/20 [History] - CURRENT (IN HOUSE) MEDS Current Meds: Current Medications Lactated Ringer's (Ringers, Lactated) 1,000 mls @ 125 mls/hr IV ASDIRECTED [facility] Last Admin: 03/12/20 07:27 Dose: 125 mls/hr Documented by: Discontinued Medications Fentanyl (Sublimaze) Confirm Administered Dose 100 mcg .ROUTE .STK-MED ONE Stop: 03/12/20 07:08 Lidocaine (Xylocaine-Mpf 2%) Confirm Administered Dose 5 ml .ROUTE .STK-MED ONE Stop: 03/12/20 07:08 Propofol (Diprivan 20 Ml) Confirm Administered Dose 400 mg .ROUTE .STK-MED ONE Stop: 03/12/20 07:08
[2020-03-12] MEDS ORDERED: ePHEDrine 50 MG/ML SDV ONE (08:48)
[2020-03-12] MEDS ORDERED: Lactated Ringers 1,000 ML IV SCH (09:00)
--- NOTE | 2020-03-12 09:01 | PCM.OPNOTE ---
- General Post-Op/Procedure Note Date of Surgery/Procedure: 03/12/20 Operative Procedure(s): Colonoscopy with snare distal sigmoid polypectomy and cold proximal sigmoid polypectomy. Pre Op Diagnosis: Desire for colorectal cancer screening. Family history of colon polyps. Post-Op Diagnosis: Sigmoid colon polyps 2. Anesthesia Technique: MAC (ASA II) Primary Surgeon: Mykel Luaren [employer] Driver: Jannet Prieto Condition: Good Free Text/Narrative:: DICTATION [id number] CPT CODE [id number]
--- NOTE | 2020-03-12 09:26 | PCM.POSTAN ---
POST ANESTHESIA ASSESSMENT - MENTAL STATUS Mental Status: Alert, Oriented - VITAL SIGNS Vital Signs: Last Vital Signs Temp 36.1 C 03/12/20 07:22 Pulse 88 03/12/20 09:16 Resp 12 03/12/20 09:16 BP 99/56 L 03/12/20 09:16 Pulse Ox 94 L 03/12/20 09:16 - RESPIRATORY Respiratory Status: Respiratory Rate WNL, Airway Patent, O2 Saturation Stable - CARDIOVASCULAR CV Status: Pulse Rate WNL, Blood Pressure Stable - GASTROINTESTINAL GI Status: No Symptoms - PAIN Pain Score: 0 - POST OP HYDRATION Hydration Status: Adequate & Stable - OBSERVATIONS Free Text/Narrative:: No anesthesia problems
--- NOTE | 2020-03-12 09:39 | PCM48HPAN ---
Post Anesthesia Note - EVALUATION WITHIN 48HRS OF ANESTHETIC Vital Signs in Normal Range: Yes Patient Participated in Evaluation: Yes Respiratory Function Stable: Yes Airway Patent: Yes Cardiovascular Function Stable: Yes Hydration Status Stable: Yes Pain Control Satisfactory: Yes Nausea and Vomiting Control Satisfactory: Yes Mental Status Recovered: Yes Vital Signs: Last Vital Signs Temp 36.1 C 03/12/20 07:22 Pulse 88 03/12/20 09:16 Resp 12 03/12/20 09:16 BP 99/56 L 03/12/20 09:16 Pulse Ox 94 L 03/12/20 09:16 - COMMENTS/OBSERVATIONS Free Text/Narrative:: No anesthesia problems
--- NOTE | 2020-03-12 11:21 | OR ---
SURGEON: Mykel Lauren M.D. DATE OF PROCEDURE: 03/12/2020 OPERATION PERFORMED: Colonoscopy with both snare and cold polypectomies from the sigmoid colon. PRIMARY SURGEON: Mykel Lauren MD ACID DUMPER: Sighter: PABLO Law student. ANESTHESIA: MAC. ASA CLASSIFICATION: II. PREOPERATIVE DIAGNOSES: 1. Desire for colorectal cancer screening. 2. Family history of colon polyps. POSTOPERATIVE DIAGNOSIS: Sigmoid polyp x2. DESCRIPTION OF PROCEDURE: The patient was taken to the endoscopy room and positioned on the endoscopy table in the left lateral decubitus position. Time-out was called for appropriate identification of the patient and procedure. Monitored anesthesia care was provided. The colonoscope was inserted into the rectum and advanced with minimal difficulty to the cecum. The cecum was identified by internal landmarks and external pressure. Despite multiple maneuvers, I could never retroflex the colonoscope in the cecum, but we could see the ileocecal valve and cecal bascule. The colonoscope was straightened and slowly withdrawn. The cecum, ascending colon, hepatic flexure, transverse colon, splenic flexure, and descending colon showed no tumors, polyps, diverticula, or angiodysplastic changes. As the colonoscope was withdrawn to the distal sigmoid, two polyps were encountered. The more proximal one was removed with the cold biopsy forceps. The distal one was removed with the snare electrocautery and both were sent for separate histologic analysis. No significant bleeding was noted from either side. The colonoscope was withdrawn to the rectum and retroflexed to visualize the anal orifice from above. Again, no tumors or polyps were seen and there were no acute hemorrhoidal changes. The colonoscope was then straightened, the rectum aspirated, and the colonoscope removed. The patient tolerated the procedure well and was taken to recovery room in satisfactory condition. RACHELE / BRITTANY /[id number]
== END 2020-03-12 09:45 | disposition home or self-care (01) ==
LOC: MW.SDS 07:06
PROVIDERS: ATTEND Surgery
DX: Z12.11 Encounter for screening for malignant neoplasm of colon (principal); D12.5 Benign neoplasm of sigmoid colon; D12.8 Benign neoplasm of rectum; I10 Essential (primary) hypertension; G47.30 Sleep apnea, unspecified; K21.9 Gastro-esophageal reflux disease without esophagitis; Z79.899 Other long term (current) drug therapy; Z83.71 Family history of colonic polyps; Z98.890 Other specified postprocedural states
CPT/HCPCS: 45380; 45385; J2001; J2704; J3010; J7120; 00812; 88305